=== PATIENT | female | born 1995 | race Caucasian/White ===

== ENCOUNTER 2021-02-02 17:07 | Emergency (ER) | payer OTHER, SELFPAY ==
--- NOTE | ~2021-02-02 | XR_ITS ---
EXAMINATION: XR CHEST CLINICAL INFORMATION: Chest pain COMPARISON: None TECHNIQUE: Frontal view of the chest was obtained. 5:44 PM FINDINGS: No significant abnormality is noted involving the heart, lungs, mediastinum, bony thorax or soft tissues. XR/XR chest 1V IMPRESSION: Unremarkable examination.
[2021-02-02 17:26] VITALS: BP 139/70; PULSE 112; RESP 18; TEMP 36.8; O2SAT 99; BMI 33.0
--- NOTE | 2021-02-02 17:30 | ECG_ITS ---
Test Reason : CHEST PAIN Blood Pressure : / mmHG Vent. Rate : 097 BPM Atrial Rate : 097 BPM P-R Int : 136 ms QRS Dur : 076 ms QT Int : 358 ms P-R-T Axes : 025 031 027 degrees QTc Int : 454 ms Normal sinus rhythm Normal ECG No previous ECGs available Referred By: Generic ED Physician Electronically Signed By:Demetrius Mariee
[2021-02-02 18:07] LABS: MANUAL DIFF FLAG NO
[2021-02-02 18:28] LABS: Anion Gap 13 (12-20); Blood Urea Nitrogen 11 mg/dL (9-16); Calcium 9.8 mg/dL (8.4-10.2); Carbon Dioxide 26 mmol/L (22-29); Chloride 104 mmol/L (96-108); Creatinine Clr Calc Pharmacy 95.4; Estimated Glomerular Filt Rate > 60; Glucose Random 101 mg/dL (60-115); Potassium 4.4 mmol/L (3.3-5.1); Sodium 139 mmol/L (135-145)
[2021-02-02 18:34] LABS: Basophils Absolute Auto 0.1 X10*3/uL (0.0-0.2); Basophils Percent Auto 0.7 % (0-2); Eosinophils Absolute Auto 0.3 X10*3/uL (0.0-0.4); Eosinophils Percent Auto 3.4 % (0-4); Hematocrit 42.7 % (37.0-47.0); Hemoglobin 14.7 g/dl (12.0-16.0); Imm Gran Abs Auto 0.02 X10*3/uL (0.00-0.03); Imm Gran Pct Auto 0.2 % (0.0-0.4); Lymphocytes Absolute Auto 2.8 X10*3/uL (1.2-4.9); Lymphocytes Percent Auto 31.3 % (20-40); Mean Corpuscular HGB Conc 34.4 g/dl (31.0-35.0); Mean Corpuscular Hemoglobin 31.4 pg (27.0-33.0); Mean Corpuscular Volume 91.2 fL (80.0-98.0); Mean Platelet Volume 12.2 fL (9.4-12.3); Monocytes Absolute Auto 0.6 X10*3/uL (0.1-1.2); Monocytes Percent Auto 6.2 % (2-11); Neutrophils Absolute Auto 5.2 x10*3/uL (2.0-8.3); Neutrophils Percent Auto 58.2 % (45-73); Platelet Count 265 X10*3/uL (160-400); Red Blood Count 4.68 X10*6/uL (4.20-5.50); Red Cell Distribution Width 11.8 % (11.0-16.0); White Blood Count 8.9 X10*3/uL (4.8-10.8)
[2021-02-02 18:35] LABS: Troponin-I High Sensitivity < 3.5 ng/L (<3.5-17.0)
--- NOTE | 2021-02-02 18:49 | ED.CHESTPAIN ---
HPI - Chest Pain General Chief Complaint: Chest Pain Stated Complaint: chest and arm pain Time Seen by Provider: 02/02/21 18:49 Source: patient Mode of arrival: ambulatory Limitations: no limitations History of Present Illness HPI narrative: Patient no significant past medical history noticed pain in the left rhomboids area scapular region radiating to left arm for last 4 days now is coming to the front of the left chest. No shortness of breath pain gets worse on movement of the left arm no cough no neck pain weakness of the left arm Related Data Previous Rx's Medication Instructions Recorded cyclobenzaprine 10 mg tablet 10 mg PO Q8H #20 tab 02/02/21 tramadol 50 mg tablet 50 mg PO Q6H PRN #20 tab 02/02/21 Allergies Allergy/AdvReac Type Severity Reaction Status Date / Time No Known Allergies Allergy Verified 02/02/21 17:26 Review of Systems Review of Systems: Yes all other systems are reviewed and are negative [facility] Past Medical History Medical History No pertinent past medical history Social History Social History Advance Directives: No Advance Directives Information Provided: Yes Patient : No Physical Exam Vital Signs: Vital Signs: Last Vital Signs Temp 98.3 F 02/02/21 17:26 Pulse 112 H 02/02/21 17:26 Resp 18 02/02/21 17:26 BP 139/70 02/02/21 17:26 Pulse Ox 99 02/02/21 17:26 BMI result Body Mass Index 33.0 Appearance: Alert. Oriented X3. No acute distress. ENT: Pharynx normal. Oral Mucosa moist Neck: Normal inspection. Neck supple. No midline tenderness no step-off sign CVS: Normal heart rate and rhythm. Pulses normal. Respiratory: No respiratory distress. Equal air entry bilateral, no wheezing/rales/rhonchi left chest wall tenderness++ Abdomen: Soft and nontender. Bowel sounds are present, no mass palpable, no CVA tenderness Skin: Skin warm and dry. Normal skin color. Normal skin turgor. back: Left rhomboid tenderness, no spinal tenderness Extremities: No lower extremity edema. No calf tenderness Neuro: Oriented X 3. No motor deficit. No sensory deficit MDM - Chest Pain Lab Data Attestation: I reviewed the patient's lab results. Result diagrams: 02/02/21 18:02 02/02/21 18:02 Labs: Lab Results 02/02/21 02/02/21 02/02/21 Range/Units 18:02 18:02 18:02 WBC 8.9 (4.8-10.8) X10*3/uL RBC 4.68 (4.20-5.50) X10*6/uL Hgb 14.7 (12.0-16.0) g/dl Hct 42.7 (37.0-47.0) % MCV 91.2 (80.0-98.0) fL MCH 31.4 (27.0-33.0) pg MCHC 34.4 (31.0-35.0) g/dl RDW 11.8 (11.0-16.0) % Plt Count 265 (160-400) X10*3/uL MPV 12.2 (9.4-12.3) fL Immature Gran % (Auto) 0.2 (0.0-0.4) % Neut % (Auto) 58.2 (45-73) % Lymph % (Auto) 31.3 (20-40) % [place] % (Auto) 6.2 (2-11) % Eos % (Auto) 3.4 (0-4) % Baso % (Auto) 0.7 (0-2) % Lymph # (Auto) 2.8 (1.2-4.9) X10*3/uL [place] # (Auto) 0.6 (0.1-1.2) X10*3/uL Eos # (Auto) 0.3 (0.0-0.4) X10*3/uL Baso # (Auto) 0.1 (0.0-0.2) X10*3/uL Abs Immat Gran (auto) 0.02 (0.00-0.03) X10*3/uL Absolute Neuts (auto) 5.2 (2.0-8.3) x10*3/uL Absolute Nucleated RBC 0.000 (0.0-0.012) X10*3/uL Nucleated RBC % (auto) 0.0 (0.0-0.2) /100WBC Sodium 139 (135-145) mmol/L Potassium 4.4 (3.3-5.1) mmol/L Chloride 104 (96-108) mmol/L Carbon Dioxide 26 (22-29) mmol/L Anion Gap 13 (12-20) BUN 11 (9-16) mg/dL Creatinine 0.86 (0.5-1.4) mg/dL Estim Creat Clear Calc 95.4 Estimated GFR > 60 Random Glucose 101 (60-115) mg/dL Calcium 9.8 (8.4-10.2) mg/dL Troponin I High Sens < 3.5 (<3.5-17.0) ng/L ECG Data ECG #1: Interpretation: Normal sinus rhythm heart rate 97 beats per minute normal intervals normal axis no acute ST T wave changes no acute ischemia impression normal EKG Discharge Plan Discharge Clinical Impression: Musculoskeletal back pain Patient Disposition: Home, Self-Care Instructions: Musculoskeletal Pain (ED) Additional Instructions: Apply ice Pain medication and muscle relaxant as advised Follow with PCP if any concerns Prescriptions: New cyclobenzaprine 10 mg tablet 10 mg PO Q8H Qty: 20 RF: 0 tramadol 50 mg tablet 50 mg PO Q6H PRN (Reason: pain) Qty: 20 RF: 0 Stand Alone Forms: Work/School Release Interventions: ED Discharge Assessment Last Done: 02/02/21 19:16 Discharge Date/Time: 02/02/21 19:17
[2021-02-02] MEDS: traMADoL HCL 50 MG TABLET PO (19:07)
[2021-02-02] MEDS: Cyclobenzaprine HCl 10 MG TABLET PO (19:07)
== END 2021-02-02 19:17 | disposition home or self-care (01) ==
PROVIDERS: Emergency Provider Internal Medicine; PCP Internal Medicine
DX: M54.9 Dorsalgia, unspecified (principal); R07.9 Chest pain, unspecified
CPT/HCPCS: 36415; 71045; 80048; 84484; 85025; 93005; 99283

== ENCOUNTER 2022-11-10 16:03 | Outpatient (REF) | payer OTHER, SELFPAY ==
[2022-11-10 17:10] LABS: Appearance Urine Clear; Color Urine Yellow; Glucose Urine UA Negative (Negative); Leukocyte Esterase Urine Negative (Negative); Nitrite Urine Negative (Negative); Specific Gravity - Urine 1.015 (1.005-1.025); Urine Blood Negative (Negative); Urine Ketones Negative (Negative); Urine Protein Negative (Neg-Trace)
== END 2022-11-10 16:04 | disposition home or self-care (01) ==
LOC: HO.LAB 16:03
PROVIDERS: PCP Internal Medicine; Visit Provider Internal Medicine
DX: R39.9 Unspecified symptoms and signs involving the genitourinary system (principal)
CPT/HCPCS: 81003

== ENCOUNTER 2023-03-08 10:19 | Outpatient (AMB) | payer OTHER, SELFPAY ==
[2023-03-08 10:30] VITALS: BP 126/70; PULSE 97; TEMP 36.8; O2SAT 98
--- NOTE | 2023-03-08 10:30 | AM.OFFWIN_ITS ---
Intake Vital Signs 03/08/23 10:30 Height 5 ft 1 in BMI Reason not done Patient refused/unable BP 126/70 Blood Pressure Location Rt brachial Position Sitting Pulse 97 Pulse Source Pulse Oximeter Temp 98.2 F Temp Source Oral Pulse Oximetry (%) 98 Oxygen Delivery Method Room Air Intake Visit Reasons: EST/trouble swallowing (lobby masked) Intake Note: pt is here for c/o trouble swallowing Patient Tobacco Use Status: Former Tobacco user Allergies No Known Allergies Allergy (Verified 03/08/23 10:31) Medication List - Last Reconciled 03/08/23 by Kallie Staton NP amoxicillin 500 mg PO BID 10 days oseltamivir (Tamiflu) 75 mg PO BID 5 days Do you need a note to return to daycare/school/sports/work: Yes HPI HPI Comments History of Present Illness Details 27 y/o female who [facility] with c/o runny nose, nasal congestion, sneezing, cough, fatigue and headaches. Reports that symptoms started ~ 2 weeks ago. She was seen at a local Urgent care few days ago, and tested positive for Strep and Influenza A. She states that she was not prescribed any medications and no one called her with results. Pt was able to access the Patient Portal and saw the results - Pt presented the Portal results to me. Pt has been taking OTC medications with no relief. Pt frustrated because no one would give her treatment and feels the symptoms are getting worse. [facility] Surgical History No pertinent past surgical history Family History Father No problems noted. Mother Thyroid cancer Social History Housing: House Alcohol intake: current Alcohol intake frequency: holidays/special occasions only Alcohol type: beer Patient Tobacco Use Status: Former Tobacco user Tobacco use type: Cigarette e-Cigarette/Vaping Use: Never Used Second Hand Smoke Exposure: No service: No Current occupational status: employed Current occupational exposures/hazards: No Cognitive needs: No Hearing needs: No Vision needs: No Review of Systems Const Reports anorexia, Reports body aches, Reports chills, Reports fatigue, Reports fever(s), Reports headache(s), Reports lethargy and Reports malaise Eyes Reports dry eyes and Reports itchy eyes ENT Reports Normal hearing present, Reports dizziness, Denies ear discharge, Reports headache(s), Reports hoarseness, Reports nasal congestion, Reports nasal dis charge, Reports odynophagia, Reports post nasal drip, Reports sinus pain, Reports sinus pressure and Reports sore throat Card Denies chest pain, Reports lightheadedness and Reports dyspnea Resp Reports chest congestion, Reports cough, Reports dyspnea and Reports wheezing GI Denies abdominal pain, Denies diarrhea, Denies nausea, Reports odynophagia and Denies vomiting Neuro Reports Normal hearing present, Reports dizziness and Reports headache(s) Endo Reports fatigue Aller/Immun Reports itchy eyes and Reports wheezing Physical Exam Vital Signs: Last Vital Signs Temp 98.2 F 03/08/23 10:30 Pulse 97 03/08/23 10:30 BP 126/70 03/08/23 10:30 Pulse Ox 98 03/08/23 10:30 Oxygen Delivery Method Room Air 03/08/23 10:30 Const General: cooperative and no acute distress HEENT Head: Yes normocephalic Ears: external ears normal and TM's normal bilaterally General nose exam: Abnormal mucous membranes and turbinates present boggy and erythematous and Nasal discharge present Face and sinus: No erythema, No edema and Yes sinus tenderness Mouth: moist mucous membranes Throat: Yes tonsils normal, Yes uvula midline and Yes postnasal drainage Resp Effort & Inspection: normal respiratory effort and Actively coughing Auscultation: clear to auscultation bilaterally, no crackles, no rales, no rhonchi and no wheezes Cardio Rate: regular rate Rhythm: regular rhythm Neuro Cranial nerves: Yes Normal hearing present Results AMB Rapid Strep AMB Rapid Strep Negative Last Edit by Chris Stallings CMA on 03/08/23 11 :09 Results Reviewed Results Reviewed: Laboratory Last Values Strep Scn Rapid Clinic Negative 03/08/23 11:08 Assessment & Plan Assessment & Plan (1) URI, acute: Code(s): J06.9 - Acute upper respiratory infection, unspecified Plan: Rest and hydrate well with warm fluids. Reports any high fevers, SOB or chest pains. (2) Acute pharyngitis: Code(s): J02.9 - Acute pharyngitis, unspecified Qualifiers: Pharyngitis/tonsillitis etiology: other specified organisms Qualified Code(s): J02.8 - Acute pharyngitis due to other specified organisms Plan: - Per Patient Portal results she presented to me, she is Positive Strep Grp B and Influenza A. - Rxd Tamiflu and PCN - Advised Pt that most likely Anti-viral medicines wont work now. Overall, Tamiflu can decrease the severity of flu symptoms and shorten the illness for few days. - Gargle with saltwater. - Consider lozenges or hard candy. Orders: Orders AMB Rapid Strep Screen Today Z13.9 - Encounter for screening, unspecified Medications: New oseltamivir (Tamiflu) 75 mg PO BID 5 days 10 caps 0RF amoxicillin 500 mg PO BID 10 days 20 caps 0RF Coding Level of Care Code Est Pt Level 3 (42212) Diagnoses URI, acute J06.9 Acute pharyngitis due to other specified organisms J02.8 Pharyngitis/tonsillitis etiology: other specified organisms Time Spent (min) 15
== END 2023-03-08 12:16 | disposition home or self-care (01) ==
PROVIDERS: PCP Internal Medicine; Visit Provider Nurse Practitioner Family
DX: J06.9 Acute upper respiratory infection, unspecified (principal); J02.8 Acute pharyngitis due to other specified organisms
CPT/HCPCS: 87880; 99213

== ENCOUNTER 2023-06-20 07:31 | Outpatient (REF) | payer OTHER, SELFPAY ==
[2023-06-20 09:13] LABS: Alanine Aminotransferase 21 U/L (0-31); Albumin Level 4.4 g/dL (3.5-5.0); Alkaline Phosphatase 65 U/L (39-117); Anion Gap 13 (12-20); Aspartate Amino Transferase 16 U/L (5-31); Bilirubin Total 0.5 mg/dL (0.0-1.0); Blood Urea Nitrogen 13 mg/dL (9-16); Calcium 9.3 mg/dL (8.4-10.2); Carbon Dioxide 25 mmol/L (22-29); Chloride 104 mmol/L (96-108); Cholesterol 270 mg/dL (<200); Estimated Glomerular Filt Rate > 60; Glucose Fasting 87 mg/dL (60-99); HDL Cholesterol 69 mg/dL (>40); LDL Cholesterol Calculated 173 mg/dL (<100); Sodium 138 mmol/L (135-145); Thyroid Stimulating Hormone 2.58 uIU/mL (0.32-4.0); Total Protein 7.3 g/dL (6.5-8.0); Triglycerides 143 mg/dL (<150)
== END 2023-06-20 07:32 | disposition home or self-care (01) ==
LOC: HO.LAB 07:31
PROVIDERS: PCP Internal Medicine; Visit Provider Internal Medicine
DX: Z00.00 Encounter for general adult medical examination without abnormal findings (principal); E66.9 Obesity, unspecified
CPT/HCPCS: 36415; 80053; 80061; 84443

== ENCOUNTER 2023-08-20 08:50 | Outpatient (AMB) | payer OTHER, SELFPAY ==
--- NOTE | 2023-08-20 08:52 | A.OFFPC_ITS ---
Vital Signs 08/20/23 08:53 Height 5 ft 1 in Weight 183 lb BMI 34.6 BP 120/72 Blood Pressure Location Lt brachial Position Sitting Intake Visit Reasons: Annual Exam Intake Note: Patient here for a physical exam [employer] Required: No Accompanied by: Self / Same As Patient Allergies No Known Allergies Allergy (Verified 08/20/23 09:04) Medication List - Last Reconciled 08/20/23 by Melvina Farrar MD No Known Home Meds Tobacco use date assessed: 08/20/23 Dental Screening Dental Screen Date: 08/20/23 Did you have a dental visit in the last 12 months?: Yes Did you have a dental problem in the last 6 months where you did not have access to dental care?: No Was dental information given to patient?: Patient has dentist HPI HPI Comments History of Present Illness Details This is a 27-year-old female that comes for her physical exam. Pap smears are follow by OBGYN and they are up-to-date. She was recently diagnosed with PCOS and has tried oral contraceptive for 4 months with multiple side effects and still menses is not regular. Would like to try something else. I will start her on metformin for a 30 day trial to see if symptoms of PCOS improved. She is aware that metformin can cause abdominal pain, nausea, vomiting and diarrhea. [facility] Surgical History No pertinent past surgical history Family History Father No problems noted. Mother Thyroid cancer Social History Housing: House Alcohol intake: former Patient Tobacco Use Status: Former Tobacco user Tobacco use type: Cigarette e-Cigarette/Vaping Use: Never Used Second Hand Smoke Exposure: No service: No Current occupational status: employed Current occupational exposures/hazards: No Cognitive needs: No Hearing needs: No Vision needs: No Questionnaire PHQ-9 Over the last 2 weeks, how often have you been bothered by any of the following problems? 1. Little interest or pleasure in doing things: not at all 2. Feeling down, depressed, or hopeless: not at all 3. Trouble falling or staying asleep, or sleeping too much: not at all 4. Feeling tired or having little energy: not at all 5. Poor appetite or overeating: not at all 6. Feeling bad about yourself - or that you are a failure or have let yourself or your family down: not at all 7. Trouble concentrating on things, such as reading the newspaper or watching television: not at all 8. Moving or speaking so slowly that other people could have noticed. Or the opposite - being so fidgety or restless that you have been moving around a lot more than usual: not at all 9. Thoughts that you would be better off or of hurting yourself in some way: not at all Total score: 0 Depression Screening Interpretation: Negative Depression Screening Done: Yes 53616 - PHQ-9 Billing: Yes Source: Developed by Drs. Elliot Li, Romelia Puga, Jose Mosley and colleagues, with an educational wes from [employer]. Thrive Questionnaire Date Thrive assessed: 08/20/23 I am a: Patient What is your living situation today?: I have a steady place to live Within the past 12 months, did the food you bought not last and you didn't have the money to get more?: Never true Within the past 12 months, did you worry whether your food would run out before you got money to buy more?: Never true Do you have trouble paying for medicines?: No Do you have trouble getting transportation to medical appointments?: No Do you have trouble paying your heating and electricity bill?: No Do you have trouble taking care of your child, family member or friend?: No Do you have trouble with day-to-day activities such as bathing, preparing meals, shopping, managing finances, etc.?: No Are you currently unemployed and looking for a job?: No Are you interested in more education?: No Please select the resources that you would like help with: None Currently or been in a relationship where the following occur: no concerns reported THRIVE Score: 0 AUDIT C Alcohol Use Questionnaire (AUDIT-C) 1. How often do you have a drink containing alcohol?: Never Total Score: 0 Score Reviewed/Action Taken: No LEO-7 AMB Questionnaire LEO-7 Date LEO - 7 assessed: 08/20/23 Feeling nervous, anxious, or on edge: 0 = Not at all Not being able to stop or control worryin = Not at all Worrying too much about different things: 0 = Not at all Trouble relaxin = Not at all Being so restless that it is hard to sit still: 0 = Not at all Becoming easily annoyed or irritable: 0 = Not at all Feeling afraid as if something awful might happen: 0 = Not at all Total LEO-7 score (0-4 normal; 5-9 mild; 10-14 moderate; 15-21 severe): 0 Source: Developed by Drs. Elliot Li, Romelia Puga, Jose Mosley and colleagues, with an educational wes from [employer]. LEO-7 Assessment Billing LEO-7 Assessment Tool: LEO-7 Assessment 32384 Review of Systems Const All systems reviewed & are unremarkable except as noted in HPI and below Card Denies chest pain at rest, Denies chest pain with activity, Denies edema, Denies irregular heart rhythm, Denies claudication, Denies dyspnea, Denies dyspnea on exertion, Denies orthopnea, Denies paroxysmal nocturnal dyspnea and Denies slow heart rate Resp Denies cough, Denies dyspnea and Denies dyspnea on exertion Physical exam (Primary Care) Vital Signs: Last Vital Signs BP 120/72 08/20/23 08:53 BMI result Body Mass Index 34.6 Tobacco/Smoking Status: Tobacco use Status Tobacco use date assessed 08/20/23 08/20/23 08:58 Patient Tobacco Use Status Former Tobacco user 08/20/23 08:58 Tobacco use type Cigarette 08/20/23 08:58 e-Cigarette/Vaping Use Never Used 08/20/23 08:58 PHQ-9: PHQ-9 Score PHQ-9: Total score 0 08/20/23 09:05 Depression Screening Interpretation: Negative Thrive Assessment: Date of Thrive Assessment Date Thrive assessed 08/20/23 08/20/23 08:58 Currently or been in a relationship where the following occur: no concerns reported Const Orientation/consciousness: patient oriented x3 HENMT Head: Yes normal to inspection, Yes normocephalic and Yes atraumatic Ears: external ears normal Eyes General: appearance normal, both eyes and all related structures Eyelids: Yes eyelids normal Conjunctivae: conjunctivae normal Neck Neck: Yes normal visual inspection and Yes supple Resp Effort & Inspection: normal respiratory effort Auscultation: clear to auscultation bilaterally Cardio Jugular venous distension: no JVD Rate: regular rate Rhythm: regular rhythm Heart sounds: S1 normal heart sound present and S2 normal heart sound present GI Inspection: Yes normal to inspection Palpation (GI): Soft to palpation and nontender Auscultation: normal bowel sounds Skin General skin exam: no rashes or lesions noted Neuro General: patient oriented x3 and no focal motor deficits Extrem General: Yes full ROM Psych Appearance: grossly normal Assessment and Plan Assessment & Plan (1) Physical exam: Code(s): Z00.00 - Encounter for general adult medical examination without abnormal findings Plan: Repeat in a year. (2) PCOS (polycystic ovarian syndrome): Code(s): E28.2 - Polycystic ovarian syndrome Plan: Start metformin. Follow-up with OBGYN. Medications: New metformin 500 mg PO DAILY 30 tabs 0RF 30 days E28.2 - Polycystic ovarian syndrome Coding Level of Care Code Est Pt Level 3 (61510) Est Pt Prev Care 18-39y(60725) Diagnoses Physical exam Z00.00 PCOS (polycystic ovarian syndrome) E28.2 Additional Codes LEO-7 Assessment Billing - LEO-7 Assessment Tool: LEO-7 Assessment 91921 ([id number]) Time Spent (min) 35
[2023-08-20 08:53] VITALS: BP 120/72; BMI 34.6
== END 2023-08-20 09:27 | disposition home or self-care (01) ==
PROVIDERS: PCP Internal Medicine; Visit Provider Internal Medicine
DX: Z00.00 Encounter for general adult medical examination without abnormal findings (principal); E28.2 Polycystic ovarian syndrome
CPT/HCPCS: 99213; 99395